=== PATIENT | male | born 1980 | race Caucasian/White ===

== ENCOUNTER 2020-10-02 19:34 | Emergency (ER) | payer OTHER ==
[~2020-10-02] VITALS: Ht 193 cm; Wt 181.0 kg
[~2020-10-02 19:34] MED LIST: ONDANSETRON ODT8 MG PO; ULTRAM50 MG PO; VITAMIN B122500 MCG PO; VITAMIN D32000 UNI1 PO
== END 2020-10-02 21:34 | disposition left against medical advice (07) ==
LOC: ED 19:34
DX: Z53.21 Procedure and treatment not carried out due to patient leaving prior to being seen by health care provider (principal)

== ENCOUNTER 2023-11-05 08:56 | Emergency (ER) | payer OTHER, BC ==
[~2023-11-05] VITALS: Ht 193 cm; Wt 111.6 kg
[2023-11-05 09:40] VITALS: BP 114/61
== END 2023-11-05 09:42 | disposition home or self-care (01) ==
LOC: ED 08:56
DX: T16.1XXA Foreign body in right ear, initial encounter (principal); W44.8XXA Other foreign body entering into or through a natural orifice, initial encounter; Y99.0 Civilian activity done for income or pay
CPT/HCPCS: 69200; 99282

== ENCOUNTER 2024-02-25 08:43 | Emergency (ER) | payer OTHER, BC ==
[~2024-02-25] VITALS: Ht 193 cm; Wt 109.9 kg
--- OUTSIDE RECORDS SUMMARY | 2024-02-25 08:48 | XMS ---
PreManage Notification: RITIKA LIVINGSTON Security Tab Builder Events No recent Security Events currently on file CRITERIA MET - [facility] - 2 Visits in 30 Days CARE PROVIDERS There are no care providers on record at this time. Jairo has no Care Guidelines for this patient. Mitch VISIT COUNT (12 MO.) [address] [facility] TOTAL 3 NOTE: Visits indicate total known visits. ED/[facility] VISIT TRACKING (12 MO.) 02/25/2024 08:43 [facility] [place] TYPE: Emergency COMPLAINT: - SKIN PROBLEM 02/21/2024 08:41 [facility] [place] TYPE: Emergency COMPLAINT: - ABD PAIN, BLOOD IN STOOL DIAGNOSES: - Noninfective gastroenteritis and colitis, unspecified - Unspecified abdominal pain 11/05/2023 08:57 [facility] [place] TYPE: Emergency COMPLAINT: - FOREIGN OBJECT R EAR DIAGNOSES: - Civilian activity done for income or pay - Foreign body in right ear, initial encounter - OTHER FOREIGN BODY ENTERING VIA NATURAL ORIFICE, I INPATIENT VISIT TRACKING (12 MO.) No inpatient visits to display in this time frame [email or web address]
[2024-02-25] MEDS ORDERED: LORATADINE 10 MG TAB PO ONE (09:00)
[2024-02-25] MEDS ORDERED: FAMOTIDINE 20 MG TAB PO ONE (09:00)
[2024-02-25] MEDS ORDERED: predniSONE 20 MG TAB PO ONE (09:00)
[2024-02-25] MEDS ORDERED: PREDNISONE20 MG PO (09:07)
[2024-02-25 09:20] VITALS: BP 125/71
== END 2024-02-25 09:20 | disposition home or self-care (01) ==
LOC: ED 08:43
DX: L50.9 Urticaria, unspecified (principal)
CPT/HCPCS: 99282; J7512

== ENCOUNTER 2024-11-22 08:14 | Day surgery (SDC) | payer OTHER ==
[~2024-11-22] VITALS: Ht 193 cm; Wt 106.8 kg
[~2024-11-22 08:14] MED LIST changes: +BARIATRIC MV-I1 EACH PO; +CEFAZOLIN SODIUM 2 GM/20 ML SYR IV SCH; +IBLOOD GLUCOSE TEST STRIP 1 EA TEST VI PRN; +LACTATED RINGER'S 1,000 ML IV SCH; +LIDOCAINE HCL 1% 5 ML SDV INJ ONE; +PREDNISONE20 MG PO; +TRANEXAMIC ACID IN NACL,ISO-OS 1,000 MG/100 ML PIGGYBACK IV SCH
[2024-11-22] MEDS ORDERED: MIDAZOLAM HCL 2 MG/2 ML VIAL ONE (08:25)
[2024-11-22] MEDS ORDERED: DEXAMETHASONE SOD PHOS 4 MG/ML VIAL ONE (08:25)
[2024-11-22] MEDS ORDERED: LIDOCAINE HCL 2% 5 ML SDV ONE (08:25)
[2024-11-22] MEDS ORDERED: KETOROLAC TROMETHAMINE 30 MG/ML VIAL ONE ×2 (08:25→08:51)
[2024-11-22] MEDS ORDERED: ondansetron HCL 4 MG/2 ML VIAL ONE (08:25)
[2024-11-22] MEDS ORDERED: propofoL 200 MG/20 ML VIAL ONE (08:25)
[2024-11-22 08:35] VITALS: BP 114/66
[2024-11-22] MEDS ORDERED: HYDROCODONE/ACETA 5/325 TAB PO PRN (09:15)
[2024-11-22] MEDS ORDERED: fentaNYL citrate 100 MCG/2 ML VIAL ONE (09:18)
[2024-11-22] MEDS ORDERED: SEVOFLURANE 250 ML BTL ONE (09:33)
[2024-11-22] MEDS ORDERED: HYDROCODON-ACE1 EA10 PO (10:06)
[2024-11-22] MEDS ORDERED: DICLOFENAC SODI75 MG PO (10:06)
--- NOTE | 2024-11-22 10:08 | NUR ---
11/22/24 Mary8 Shreya Duenas PT TO PACU SLEEPING ORAL AIRWAY IN PLACE O2 VIA MASK FOGGING NOTED IN MASK.
[2024-11-22 10:38] VITALS: BP 108/62
--- NOTE | 2024-11-22 10:52 | NUR ---
PT BACK IN DAY SURGERY ROOM FROM PACU. VITAL SIGNS CHECKED. PT REPORTS PAIN AT 5/10 FROM CHRONIC BACK PAIN. AT BEDSIDE. LR INFUSING IN R FOREARM. PT RESTING IN SUPINE POSITION. IV SITE WNL. SCD'S IN PLACE ON BOTH LEGS. CALL LIGHT IN REACH. BED IS LOCKED.
[2024-11-22 11:50] VITALS: BP 108/63
--- NOTE | 2024-11-22 12:21 | NUR ---
1150- VITAL SIGNS CHECKED. CMS CHECKED TO RIGHT FOOT. PT TOLERATED PUDDING AND ORANGE JUICE WELL. PAIN RATING 3-4/10 THAT IN HIS BACK. PT REPORTS A 2/10 PAIN FOR HIS KNEE AND REPORTS PAIN IS TOLERABLE. 1200- PT UP AT BEDSIDE. PT DENIES DIZZINESS. PT STANDING AT BEDSIDE. PT REPORTS FEELING COMFORTABLE TO GET DRESSED. AT BEDSIDE TO HELP. EVEN AND STEADY GAIT WITHIN THE ROOM. 1215- PT DRESSED WITH NO ISUES. DC INSTRUCTIONS GIVEN TO PT AND . IV DC'D WNL WITH TIP INTACT AND DRESSING APPLIED. PT DC FROM DS VIA WHEELCHAIR WITH .
[2024-11-22] MEDS ORDERED: SEVOFLURANE 250 ML BTL INH ONE (15:38)
[2024-11-22] MEDS ORDERED: DICLOFENAC SOD 75 MG TABEC PO SCH (21:00)
--- NOTE | 2024-11-24 06:49 | OR ---
[facility] [address], [place] [address] Signed DATE OF OPERATION: 11/22/2024 SURGEON: Pan Duenas MD PREOPERATIVE DIAGNOSIS: Medial meniscus tear, right knee. POSTOPERATIVE DIAGNOSIS: Medial meniscus tear, right knee. PROCEDURES: Right knee arthroscopy with partial medial meniscectomy and debridement of cartilage, lateral femoral condyle. RN RESIDENTIAL: None. ANESTHESIA: General. BLOOD LOSS: Minimal. BRIEF HISTORY: Ritika is a 44-year-old gentleman with painful locking in his knee. MRI was consistent with a large posteromedial meniscus tear. Risks and benefits of operative treatment discussed with him and he elected to proceed. Once consent was obtained, he was taken to the operating room. After adequate anesthesia, he was placed on operating table. All downside pressure points were well padded. The left leg was flexed, abducted and externally rotated on a well-padded leg joseph. The right was placed in a leg joseph with no tourniquet. The leg was then prepped and draped in a standard sterile fashion. The portal sites were injected with 0.25% Marcaine with epinephrine and a standard inferolateral and superolateral portals were made and the scope was introduced into the knee. ARTHROSCOPIC FINDINGS: The patella and trochlea were intact. Medial and lateral gutters were intact. ACL and PCL were intact. 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 Lateral compartment showed no meniscus tear. There were several large chondral flaps off the Electronically Signed By: PAN DUENAS MD 11/24/24 0649 PATIENT NAME: RITIKA LIVINGSTON OPERATIVE REPORT DATE OF : 80 REPORT #: [id number] PHYSICIAN: PAN DUENAS MD PCP: EVE LUCAS MD REPORT IS CONFIDENTIAL AND NOT TO BE RELEASED WITHOUT AUTHORIZATION [facility] [address], [place] [address] Signed lateral femoral condyle that were unstable. DESCRIPTION OF OPERATION: Diagnostic arthroscopy was undertaken as noted above. The medial portal was established after localization using a spinal needle. The straight and curved biters were used to trim the meniscus back to a stable rim and this was then smoothed feathered out using the shaver. All debris was evacuated. Attention was then turned to the lateral compartment, where the chondral flaps were debrided back to stable chondral surfaces . All debris again was evacuated. The scope was then withdrawn. Portals were closed with 3-0 nylon and the knee was injected with 60 mg Toradol. He tolerated the procedure well. All sponge, needle, and instrument counts were correct. The wounds were dressed with Adaptic, ABD, and Chance wrap. Pan Duenas MD BA/KELTONL /[id number] Copies: ~ Electronically Signed By: PAN DUENAS MD 11/24/24 0649 PATIENT NAME: RITIKA LIVINGSTON OPERATIVE REPORT DATE OF : 80 REPORT #: [id number] PHYSICIAN: PAN DUENAS MD PCP: EVE LUCAS MD REPORT IS CONFIDENTIAL AND NOT TO BE RELEASED WITHOUT AUTHORIZATION
== END 2024-11-22 12:15 | disposition home or self-care (01) ==
LOC: DS 08:14
PROVIDERS: ATTEND Specialist
PROC: 0SBC4ZZ Excision of Right Knee Joint, Percutaneous Endoscopic Approach (ICD-10-PCS; principal; 2024-11-22 10:15)
DX: S83.241A Other tear of medial meniscus, current injury, right knee, initial encounter (principal); X58.XXXA Exposure to other specified factors, initial encounter; Z98.84 Bariatric surgery status
CPT/HCPCS: 01400; J0690; J1100; J1885; J2003; J2250; J2405; J2704; J3010; J7121